=== PATIENT | female | born 1985 | race Caucasian/White ===

== ENCOUNTER 2023-09-03 15:53 | Inpatient (IN) | payer OTHER ==
[2023-09-03] MEDS: LACTATED RINGERS SOLUTION 1000 ML INFUS.BAG IV ONE ×2 (17:09→19:55)
[2023-09-03 17:17] LABS: VENOUS BASE EXCESS 10.9 mmol/L (-2-2); VENOUS O2 SATURATION 47.3 % (70-80); VENOUS PCO2 69.7 mmHg (38-52); VENOUS PH 7.366 (7.310-7.410)
[2023-09-03 17:18] LABS: BASO % 0.1 % (0-2.0); EOS % 6.3 % (0-4.5); HEMATOCRIT 35.2 % (32.4-45.2); LYMPH % 40.1 % (8-40); MCH 32.8 pg (25.7-33.7); MCHC 34.2 g/dl (32.0-36.0); MEAN CELL VOLUME 96.1 fl (80-96); MEAN PLT VOLUME 8.6 fl (7.5-11.1); NEUT % 46.5 % (42.8-82.8); PLATELET COUNT 234 10^3/uL (134-434); RBC 3.67 M/mm3 (3.60-5.2); RDW 14.1 % (11.6-15.6); WHITE BLOOD COUNT 4.6 K/mm3 (4.0-10.0)
[2023-09-03] MEDS: PIPERACILLIN/TAZOB 4.5 GM 4.5 GM in DEXTROSE 5%-WATER 100 ML IVPB ONE (17:27)
[2023-09-03] MEDS: VANCOMYCIN 1,000 MG in DEXTROSE 5%-WATER - 250 ML IVPB ONE (17:28)
[2023-09-03] MEDS ORDERED: VANCOMYCIN 1 GRAM (PRE-DOCKED) 1,000 MG/250 ML BAG IVPB ONE (17:28)
[2023-09-03 17:32] LABS: INR 0.78 (0.83-1.09); PROTHROMBIN TIME (PATIENT) 8.9 SEC (9.7-13.0)
[2023-09-03 17:35] LABS: ACTIVATED PTT 41.6 SECONDS (25.2-36.5)
[2023-09-03] MEDS ORDERED: PIPERACILLIN/TAZOB 4.5 GM 4.5 GM/100 ML BAG IVPB ONE (17:56)
[2023-09-03 18:10] LABS: URINE APPEARANCE CLEAR; URINE BILIRUBIN NEGATIVE (NEGATIVE); URINE COLOR YELLOW; URINE GLUCOSE (UA) NEGATIVE (NEGATIVE); URINE KETONE NEGATIVE (NEGATIVE); URINE LEUK ESTERASE NEGATIVE (NEGATIVE); URINE NITRITE NEGATIVE (NEGATIVE); URINE PROTEIN NEGATIVE (NEGATIVE); URINE UROBILINOGEN 0.2 mg/dL (0.2-1.0)
[2023-09-03] MEDS: SODIUM CHLORIDE 0.9% 500 ML INFUS.BAG IV ONE ×2 (18:27→19:52)
[2023-09-03] MEDS: ACETAMINOPHEN 1000 MG/100 ML BAG IVPB ONE (18:28)
[2023-09-03] MEDS ORDERED: ACETAMINOPHEN INJECTION 100 ML IVPB ONE (18:28)
[2023-09-03] MEDS ORDERED: HYDROCORTISONE SOD SUCCINATE 100 MG/2 ML VIAL ONE (19:27)
[2023-09-03 19:33] LABS: POTASSIUM 4.2 mmol/L (3.5-5.1)
[2023-09-03 19:35] LABS: CALCIUM 10.3 mg/dL (8.5-10.1)
[2023-09-03 19:36] LABS: ALBUMIN 3.4 g/dl (3.4-5.0); BLOOD UREA NITROGEN 16.4 mg/dL (7-18)
[2023-09-03 19:39] LABS: CREATININE 0.6 mg/dL (0.55-1.3)
[2023-09-03 19:40] LABS: TOT PROT 7.1 g/dl (6.4-8.2)
[2023-09-03] MEDS ORDERED: MIDODRINE HCL 5 MG TABLET ONE (19:40)
[2023-09-03 19:41] LABS: BILIRUBIN,TOTAL 0.2 mg/dL (0.2-1)
[2023-09-03] MEDS: HYDROCORTISONE SOD SUCCINATE 100 MG/2 ML VIAL IVPUSH ONE (19:52)
[2023-09-03] MEDS: MIDODRINE HCL 5 MG TABLET PEG ONE (20:05)
[2023-09-04 07:11] LABS: HEMATOCRIT 36.5 % (32.4-45.2); HEMOGLOBIN 12.3 GM/dL (10.7-15.3); MCH 32.4 pg (25.7-33.7); MCHC 33.6 g/dl (32.0-36.0); MEAN CELL VOLUME 96.6 fl (80-96); MEAN PLT VOLUME 9.3 fl (7.5-11.1); PLATELET COUNT 296 10^3/uL (134-434); POTASSIUM 4.2 mmol/L (3.5-5.1); RBC 3.78 M/mm3 (3.60-5.2); RDW 14.6 % (11.6-15.6)
[2023-09-04 07:17] LABS: CALCIUM 9.6 mg/dL (8.5-10.1)
[2023-09-04 07:18] LABS: ALBUMIN 3.4 g/dl (3.4-5.0); BLOOD UREA NITROGEN 12.4 mg/dL (7-18); MAGNESIUM 1.8 mg/dL (1.8-2.4)
[2023-09-04 07:19] LABS: PHOSPHOROUS 3.5 mg/dL (2.5-4.9)
[2023-09-04 07:20] LABS: BILIRUBIN,TOTAL 0.2 mg/dL (0.2-1); TOT PROT 7.3 g/dl (6.4-8.2)
[2023-09-04 07:21] LABS: CREATININE 0.5 mg/dL (0.55-1.3)
[2023-09-04 07:27] LABS: WHITE BLOOD COUNT 7.2 K/mm3 (4.0-10.0)
[2023-09-04] MEDS: ENOXAPARIN NA (PORCINE) 40 MG/0.4 ML DISP.SYRIN SQ SCH (09:43)
[2023-09-04] MEDS: MIDODRINE HCL 5 MG TABLET PO SCH (09:44)
[2023-09-04] MEDS: POLYETHYLENE GLYCOL (HEALTHYLAX) 3350 17 GM PACKET PEG SCH (09:44)
[2023-09-04] MEDS: MUPIROCIN 2% TOPICAL OINTMENT FOR DECOLONIZATION NS SCH (09:45)
[2023-09-04 09:52] LABS: ANISOCYTOSIS 0; MACROCYTOSIS 0
[2023-09-04] MEDS: FAMOTIDINE 20 MG/2.5 ML ORAL LIQUID PEG SCH (10:59)
[2023-09-04] MEDS: Lacosamide 50 MG/5 ML ORAL SOLUTION UNIT CUPS PEG SCH ×2 (11:13→21:51)
[2023-09-04] MEDS: LACOSAMIDE 50 MG TABLET PO ONE (11:15)
[2023-09-04] MEDS: AMINO ACIDS/PROTEIN HYDROLYS 30 ML LIQUID.PKT PEG SCH (17:41)
[2023-09-04] MEDS ORDERED: MIDODRINE HCL 5 MG TABLET PEG ONE (19:26)
[2023-09-04] MEDS: CHLORHEXIDINE GLUCONATE 4% CLEANSER FOR DECOLONIZATION TP SCH (21:51)
[2023-09-04] MEDS: lamoTRIgine 100 MG TABLET PO SCH (21:51)
[2023-09-04] MEDS: SENNOSIDES 8.8 MG/5 ML SYRUP PEG SCH (21:51)
[2023-09-07] MEDS: ACETAMINOPHEN 650 MG/20.3 ML ORAL SOLUTION (CUPS) PO PRN (02:58)
[2023-09-07] MEDS: LACTATED RINGERS SOLUTION 1,000 ML/1,000 ML INFUS.BAG IV STA (06:59)
[2023-09-07 09:18] LABS: HEMATOCRIT 33.5 % (32.4-45.2); HEMOGLOBIN 11.5 GM/dL (10.7-15.3); MCH 32.6 pg (25.7-33.7); MCHC 34.4 g/dl (32.0-36.0); MEAN CELL VOLUME 94.7 fl (80-96); MEAN PLT VOLUME 8.9 fl (7.5-11.1); PLATELET COUNT 266 10^3/uL (134-434); RBC 3.54 M/mm3 (3.60-5.2); RDW 14.3 % (11.6-15.6); WHITE BLOOD COUNT 6.3 K/mm3 (4.0-10.0)
[2023-09-07 09:28] LABS: POTASSIUM 4.3 mmol/L (3.5-5.1)
[2023-09-07 09:39] LABS: BLOOD UREA NITROGEN 27.3 mg/dL (7-18); CALCIUM 9.7 mg/dL (8.5-10.1)
[2023-09-07 09:40] LABS: ALBUMIN 3.1 g/dl (3.4-5.0)
[2023-09-07 09:42] LABS: CREATININE 0.7 mg/dL (0.55-1.3); PHOSPHOROUS 3.8 mg/dL (2.5-4.9)
[2023-09-07 09:44] LABS: BILIRUBIN,TOTAL 0.4 mg/dL (0.2-1); TOT PROT 6.6 g/dl (6.4-8.2)
[2023-09-07] MEDS ORDERED: lamoTRIgine 100 MG TABLET PO SCH (11:36)
[2023-09-07] MEDS ORDERED: DIAZEPAM PR PRN (12:09)
[2023-09-07] MEDS: lamoTRIgine 25 MG TABLET GT SCH (12:23)
[2023-09-07] MEDS ORDERED: BRIVARACETAM 100 MG PO SCH (12:27)
[2023-09-07] MEDS ORDERED: BRIVARACETAM 150 MG PO SCH (12:57)
[2023-09-07] MEDS: lamoTRIgine 25 MG TABLET PEG ONE (13:59)
[2023-09-07] MEDS: PATIENT'S OWN MEDICATION (NON-FORMULARY) (Brivaracetam [Briviact] 100 MG Tablet) PO SCH (14:25)
[2023-09-07] MEDS: lamoTRIgine 25 MG TABLET PO ONE (14:25)
[2023-09-07] MEDS: LACOSAMIDE 10 MG/ML PO SCH (14:26)
[2023-09-07] MEDS: BRIVARACETAM 50 MG GT SCH (14:26)
[2023-09-07] MEDS: LAMOTRIGINE 200 MG, LAMOTRIGINE 50 MG PEG SCH (21:17)
[2023-09-07] MEDS: CLOBAZAM 20 MG SL SCH (21:37)
[2023-09-07] MEDS ORDERED: PATIENT'S OWN MEDICATION (NON-FORMULARY) (Brivaracetam [Briviact] 100 MG Tablet) PO SCH (22:00)
[2023-09-07] MEDS ORDERED: BRIVARACETAM 50 MG GT SCH (22:00)
[2023-09-07] MEDS ORDERED: levETIRAcetam 500 MG TABLET (FP) PO SCH ×2 (22:00)
[2023-09-08 07:01] LABS: HEMATOCRIT 34.9 % (32.4-45.2); HEMOGLOBIN 11.8 GM/dL (10.7-15.3); MCH 32.3 pg (25.7-33.7); MCHC 33.7 g/dl (32.0-36.0); MEAN CELL VOLUME 95.7 fl (80-96); MEAN PLT VOLUME 8.3 fl (7.5-11.1); PLATELET COUNT 248 10^3/uL (134-434); RBC 3.64 M/mm3 (3.60-5.2); RDW 14.2 % (11.6-15.6); WHITE BLOOD COUNT 6.8 K/mm3 (4.0-10.0)
[2023-09-08 07:23] LABS: ALBUMIN 3.4 g/dl (3.4-5.0); BLOOD UREA NITROGEN 26.6 mg/dL (7-18); CALCIUM 9.4 mg/dL (8.5-10.1); MAGNESIUM 2.1 mg/dL (1.8-2.4)
[2023-09-08 07:26] LABS: CREATININE 0.6 mg/dL (0.55-1.3); PHOSPHOROUS 3.9 mg/dL (2.5-4.9)
[2023-09-08 07:27] LABS: BILIRUBIN,TOTAL 0.3 mg/dL (0.2-1); TOT PROT 7.1 g/dl (6.4-8.2)
[2023-09-08 12:13] VITALS: BP 93/61; PULSE 77; RESP 25; TEMP 97.2
[2023-09-08 13:15] VITALS: BMI 21.6
[2023-09-08] MEDS ORDERED: ACETAMINOPHEN 650 MG/20.3 ML ORAL SOLUTION (CUPS) PO PRN (14:34)
[2023-09-08] MEDS ORDERED: AMINO ACIDS/PROTEIN HYDROLYS 30 ML LIQUID.PKT PEG SCH (17:30)
[2023-09-08] MEDS ORDERED: MIDODRINE HCL 5 MG TABLET PO SCH (18:00)
[2023-09-08] MEDS ORDERED: SENNOSIDES 8.8 MG/5 ML SYRUP PEG SCH (22:00)
[2023-09-08] MEDS ORDERED: Lacosamide 50 MG/5 ML ORAL SOLUTION UNIT CUPS PEG SCH (22:00)
[2023-09-09] MEDS ORDERED: FAMOTIDINE 20 MG/2.5 ML ORAL LIQUID PEG SCH (10:00)
[2023-09-09] MEDS ORDERED: ENOXAPARIN NA (PORCINE) 40 MG/0.4 ML DISP.SYRIN SQ SCH (10:00)
[2023-09-09] MEDS ORDERED: POLYETHYLENE GLYCOL (HEALTHYLAX) 3350 17 GM PACKET PEG SCH (10:00)
== END 2023-09-08 15:18 | DRG 947 ==
LOC: JER 15:53 → JERBED 19:42 → JICU 22:50
PROVIDERS: ADMIT Internal Medicine Pulmonary Disease; ATTEND Internal Medicine
DX: R68.0 Hypothermia, not associated with low environmental temperature (principal); G93.41 Metabolic encephalopathy; R53.2 Functional quadriplegia; F84.2 Rett's syndrome; G90.9 Disorder of the autonomic nervous system, unspecified; G40.909 Epilepsy, unspecified, not intractable, without status epilepticus; I95.89 Other hypotension; R41.82 Altered mental status, unspecified; N20.0 Calculus of kidney
CPT/HCPCS: 0241U-QW; 36415; 71045-TC-FY; 80053; 81003; 82308; 82550; 82803; 82962; 83605; 83735; 84100; 84146; 84439; 84443; 84484; 85025; 85027; 85610; 85730; 86140; 86850; 86870; 86880; 86900; 86901; 86902; 87040; 87086; 87635; 93005; 93010; 99285-25; J0131

== ENCOUNTER 2024-02-08 10:44 | Inpatient (IN) | payer OTHER ==
[2024-02-08 12:34] LABS: ACTIVATED PTT 38.4 SECONDS (25.2-36.5); PROTHROMBIN TIME (PATIENT) 11.5 SEC (9.7-13.0)
[2024-02-08 12:37] LABS: POTASSIUM 3.8 mmol/L (3.5-5.1)
[2024-02-08 12:38] LABS: CALCIUM 10.4 mg/dL (8.5-10.1)
[2024-02-08 12:39] LABS: ALBUMIN 3.4 g/dl (3.4-5.0); BLOOD UREA NITROGEN 12.7 mg/dL (7-18)
[2024-02-08 12:44] LABS: BILIRUBIN,TOTAL 0.2 mg/dL (0.2-1); TOT PROT 7.7 g/dl (6.4-8.2)
[2024-02-08] MEDS ORDERED: VANCOMYCIN 1 GRAM (PRE-DOCKED) 1,000 MG/250 ML BAG IVPB ONE (14:03)
[2024-02-08] MEDS ORDERED: PIPERACILLIN/TAZOB 4.5 GM 4.5 GM/100 ML BAG IVPB ONE (14:03)
[2024-02-08 14:22] LABS: HEMOGLOBIN 13.3 GM/dL (10.7-15.3); MCH 31.9 pg (25.7-33.7); MEAN CELL VOLUME 93.7 fl (80-96); MEAN PLT VOLUME 9.9 fl (7.5-11.1); PLATELET COUNT 169 10^3/uL (134-434); RBC 4.17 M/mm3 (3.60-5.2); RDW 13.4 % (11.6-15.6); WHITE BLOOD COUNT 14.3 K/mm3 (4.0-10.0)
[2024-02-08] MEDS: PIPERACILLIN/TAZOB 4.5 GM 4.5 GM in DEXTROSE 5%-WATER 100 ML IVPB ONE (14:35)
[2024-02-08 14:50] LABS: EPI CELLS 1 /uL (0-25.1); HYALINE CASTS 3 /uL (0-3.1); PH,URINE 6.5 (5.0-8.0); URINE APPEARANCE CLOUDY; URINE BACTERIA >9,000 /uL (0-1359); URINE BILIRUBIN NEGATIVE (NEGATIVE); URINE COLOR YELLOW; URINE GLUCOSE (UA) NEGATIVE (NEGATIVE); URINE KETONE NEGATIVE (NEGATIVE); URINE LEUK ESTERASE 3+ (NEGATIVE); URINE NITRITE POSITIVE (NEGATIVE); URINE PROTEIN 1+ (NEGATIVE); URINE RBC 11 /uL (0-23.9); URINE WBC 340 /uL (0-25.8)
[2024-02-08 14:59] LABS: ANISOCYTOSIS 0; MACROCYTOSIS 0
[2024-02-08 14:59] LABS: LACTIC ACID 6.6 mmol/L (0.4-2.0)
[2024-02-08] MEDS: VANCOMYCIN 1 GRAM (PRE-DOCKED) 1,000 MG/250 ML BAG IVPB ONE (15:04)
[2024-02-08] MEDS: SODIUM CHLORIDE 0.9% 500 ML INFUS.BAG IV ONE (15:27)
[2024-02-08] MEDS ORDERED: ACETAMINOPHEN 325 MG TABLET (FP) PO PRN (15:31)
[2024-02-08] MEDS ORDERED: diazePAM RECTAL GEL 7.5 MG KIT (PRE-CALIBRATED) RC PRN (15:31)
[2024-02-08] MEDS ORDERED: MIDODRINE HCL 5 MG TABLET ONE (18:25)
[2024-02-08] MEDS ORDERED: PIPERACILLIN/TAZOB 3.375 GM 3.375 GM/50 ML BAG IVPB ONE (18:26)
[2024-02-08 18:31] LABS: LACTIC ACID 4.4 mmol/L (0.4-2.0)
[2024-02-08] MEDS: MIDODRINE HCL 5 MG TABLET GT SCH (18:44)
[2024-02-08] MEDS: SCOPOLAMINE HYDROBROMIDE 1 PATCH PATCH.TD72 TD SCH (18:44)
[2024-02-08] MEDS: PIPERACILLIN/TAZOB 3.375 GM 3.375 GM in DEXTROSE 5%-WATER - 50 ML IVPB SCH (18:44)
[2024-02-08 20:10] LABS: LACTIC ACID 3.8 mmol/L (0.4-2.0)
[2024-02-08] MEDS ORDERED: cloBAZam 10 MG TABLET ONE (22:14)
[2024-02-08] MEDS ORDERED: Lacosamide 200 MG/20 ML VIAL IVPB ONE (22:14)
[2024-02-08] MEDS ORDERED: lamoTRIgine 100 MG TABLET ONE (22:15)
[2024-02-08] MEDS ORDERED: lamoTRIgine 25 MG TABLET ONE (22:15)
[2024-02-08] MEDS ORDERED: Lacosamide 50 MG/5 ML ORAL SOLUTION UNIT CUPS ONE (22:25)
[2024-02-08] MEDS: cloBAZam 10 MG TABLET GT SCH (22:52)
[2024-02-08] MEDS: LAMOTRIGINE 200 MG, LAMOTRIGINE 25 MG PO SCH (22:52)
[2024-02-08] MEDS: Lacosamide 50 MG/5 ML ORAL SOLUTION UNIT CUPS PO SCH (22:52)
[2024-02-08] MEDS: ARTIFICIAL TEARS OPHTHALMIC DROPS OU SCH (23:25)
[2024-02-09] MEDS ORDERED: PIPERACILLIN/TAZOB 3.375 GM 3.375 GM/50 ML BAG IVPB ONE ×2 (02:45→12:31)
[2024-02-09 07:25] LABS: BASO % 0.1 % (0-2.0); EOS % 0.2 % (0-4.5); HEMATOCRIT 38.9 % (32.4-45.2); HEMOGLOBIN 13.2 GM/dL (10.7-15.3); LYMPH % 9.1 % (8-40); MCH 31.9 pg (25.7-33.7); MCHC 33.8 g/dl (32.0-36.0); MEAN CELL VOLUME 94.3 fl (80-96); MEAN PLT VOLUME 9.1 fl (7.5-11.1); MONO % 6.7 % (3.8-10.2); NEUT % 83.9 % (42.8-82.8); PLATELET COUNT 239 10^3/uL (134-434); RBC 4.13 M/mm3 (3.60-5.2); RDW 12.9 % (11.6-15.6)
[2024-02-09 07:36] LABS: POTASSIUM 4.5 mmol/L (3.5-5.1)
[2024-02-09 07:41] LABS: ALBUMIN 3.5 g/dl (3.4-5.0); BLOOD UREA NITROGEN 9.7 mg/dL (7-18); CALCIUM 10.5 mg/dL (8.5-10.1); MAGNESIUM 2.2 mg/dL (1.8-2.4)
[2024-02-09 07:45] LABS: CREATININE 0.5 mg/dL (0.55-1.3); PHOSPHOROUS 2.6 mg/dL (2.5-4.9)
[2024-02-09 07:46] LABS: BILIRUBIN,TOTAL 0.4 mg/dL (0.2-1); TOT PROT 7.9 g/dl (6.4-8.2)
[2024-02-09] MEDS ORDERED: POLYETHYLENE GLYCOL (HEALTHYLAX) 3350 17 GM PACKET ONE (12:29)
[2024-02-09] MEDS ORDERED: Lacosamide 200 MG/20 ML VIAL IVPB ONE (12:30)
[2024-02-09] MEDS ORDERED: lamoTRIgine 100 MG TABLET ONE (12:30)
[2024-02-09] MEDS ORDERED: lamoTRIgine 25 MG TABLET ONE (12:30)
[2024-02-09] MEDS: LORATADINE 10 MG TABLET GT SCH (13:12)
[2024-02-09] MEDS: LACTOBACILLUS ACIDOPHILUS 1 TABLET PO SCH (13:12)
[2024-02-09] MEDS: POLYETHYLENE GLYCOL (HEALTHYLAX) 3350 17 GM PACKET GT SCH (13:12)
[2024-02-09] MEDS: ENOXAPARIN NA (PORCINE) 40 MG/0.4 ML DISP.SYRIN SQ SCH (13:12)
[2024-02-09] MEDS: SENNOSIDES 8.8 MG/5 ML SYRUP GT SCH (13:13)
[2024-02-09] MEDS: FAMOTIDINE 20 MG TABLET PO SCH (13:13)
[2024-02-09] MEDS ORDERED: Lacosamide 50 MG/5 ML ORAL SOLUTION UNIT CUPS ONE (13:16)
[2024-02-09] MEDS: DEXTROSE 5%-LACTATED RINGERS 1,000 ML IV SCH (13:44)
[2024-02-09] MEDS: DOCUSATE SODIUM 100 MG CAPSULE (FP) PO SCH (20:27)
[2024-02-09] MEDS: FLUTICASONE PROP 0.05% 16 GM NASAL SPRAY NS SCH (20:27)
[2024-02-09] MEDS: PIPERACILLIN/TAZOB 3.375 GM 3.375 GM in DEXTROSE 5%-WATER - 50 ML IVPB SCH ×2 (20:37→23:59)
[2024-02-10 07:10] LABS: HEMATOCRIT 38.8 % (32.4-45.2); HEMOGLOBIN 13.1 GM/dL (10.7-15.3); MCH 31.9 pg (25.7-33.7); MCHC 33.8 g/dl (32.0-36.0); MEAN CELL VOLUME 94.6 fl (80-96); MEAN PLT VOLUME 9.3 fl (7.5-11.1); PLATELET COUNT 250 10^3/uL (134-434); RBC 4.11 M/mm3 (3.60-5.2); RDW 13.5 % (11.6-15.6); WHITE BLOOD COUNT 6.6 K/mm3 (4.0-10.0)
[2024-02-10 07:35] LABS: ALBUMIN 3.2 g/dl (3.4-5.0); BLOOD UREA NITROGEN 12.3 mg/dL (7-18); CALCIUM 10.1 mg/dL (8.5-10.1)
[2024-02-10 07:39] LABS: CREATININE 0.7 mg/dL (0.55-1.3)
[2024-02-10 07:40] LABS: BILIRUBIN,TOTAL 0.6 mg/dL (0.2-1); TOT PROT 7.3 g/dl (6.4-8.2)
[2024-02-10] MEDS ORDERED: diazePAM RECTAL GEL 7.5 MG KIT (PRE-CALIBRATED) RC PRN (14:13)
[2024-02-10] MEDS ORDERED: ACETAMINOPHEN 325 MG TABLET (FP) PO PRN (14:13)
[2024-02-10] MEDS: VANCOMYCIN/WATER FOR INJ (PEG) 1,000 MG/200 ML BAG IVPB SCH (14:37)
[2024-02-10] MEDS: NORETHINDRONE E ESTRADIOL IRON GT SCH (15:51)
[2024-02-10] MEDS: BRIVARACETAM 50 MG GT SCH (15:51)
[2024-02-10] MEDS: MIDODRINE HCL 5 MG TABLET GT SCH (18:22)
[2024-02-10] MEDS: SCOPOLAMINE HYDROBROMIDE 1 PATCH PATCH.TD72 TD SCH (18:53)
[2024-02-10] MEDS ORDERED: ACETAMINOPHEN 160 MG/5 ML *Children Solution GT PRN (21:05)
[2024-02-10] MEDS: PIPERACILLIN/TAZOB 3.375 GM 50 ML IVPB SCH (21:22)
[2024-02-10] MEDS ORDERED: LAMOTRIGINE 200 MG, LAMOTRIGINE 25 MG PO SCH (22:00)
[2024-02-10] MEDS ORDERED: Lacosamide 50 MG/5 ML ORAL SOLUTION UNIT CUPS PO SCH (22:00)
[2024-02-10] MEDS ORDERED: BRIVARACETAM 50 MG GT SCH (22:00)
[2024-02-10 23:37] VITALS: RESP 18
[2024-02-10] MEDS: cloBAZam 10 MG TABLET GT SCH (23:40)
[2024-02-10] MEDS: Lacosamide 50 MG/5 ML ORAL SOLUTION UNIT CUPS GT SCH (23:40)
[2024-02-10] MEDS: LAMOTRIGINE 200 MG, LAMOTRIGINE 25 MG GT SCH (23:40)
[2024-02-11] MEDS: ARTIFICIAL TEARS OPHTHALMIC DROPS OU SCH (02:33)
[2024-02-11] MEDS ORDERED: LACTOBACILLUS ACIDOPHILUS 1 TABLET PO SCH (10:00)
[2024-02-11] MEDS ORDERED: DOCUSATE SODIUM 100 MG CAPSULE (FP) PO SCH (10:00)
[2024-02-11] MEDS ORDERED: FAMOTIDINE 20 MG TABLET PO SCH (10:00)
[2024-02-11] MEDS ORDERED: NORETHINDRONE E ESTRADIOL IRON GT SCH (10:00)
[2024-02-11] MEDS: ENOXAPARIN NA (PORCINE) 40 MG/0.4 ML DISP.SYRIN SQ SCH (10:17)
[2024-02-11] MEDS: LACTOBACILLUS ACIDOPHILUS 1 TABLET GT SCH (10:20)
[2024-02-11] MEDS: POLYETHYLENE GLYCOL (HEALTHYLAX) 3350 17 GM PACKET GT SCH (10:20)
[2024-02-11] MEDS: DOCUSATE NA 100 MG/10 ML UNIT-DOSE CUPS GT SCH (10:20)
[2024-02-11] MEDS: FAMOTIDINE 20 MG TABLET PEG SCH (10:21)
[2024-02-11] MEDS: LORATADINE 10 MG TABLET GT SCH (10:21)
[2024-02-11] MEDS: FLUTICASONE PROP 0.05% 16 GM NASAL SPRAY NS SCH (10:23)
[2024-02-11] MEDS: SENNOSIDES 8.8 MG/5 ML SYRUP GT SCH (10:46)
[2024-02-11] MEDS: ALBUTEROL SO4 2.5/IPRATROPIUM 0.5 INH SOL 3 ML VIAL.NEB. NEB SCH (12:00)
[2024-02-11 13:31] LABS: HEMATOCRIT 38.6 % (32.4-45.2); HEMOGLOBIN 13.2 GM/dL (10.7-15.3); MCH 32.3 pg (25.7-33.7); MCHC 34.3 g/dl (32.0-36.0); MEAN CELL VOLUME 94.1 fl (80-96); MEAN PLT VOLUME 9.6 fl (7.5-11.1); PLATELET COUNT 261 10^3/uL (134-434); RDW 13.5 % (11.6-15.6); WHITE BLOOD COUNT 5.9 K/mm3 (4.0-10.0)
[2024-02-11 13:57] LABS: POTASSIUM 4.5 mmol/L (3.5-5.1)
[2024-02-11 14:02] LABS: ALBUMIN 3.1 g/dl (3.4-5.0); CALCIUM 9.4 mg/dL (8.5-10.1)
[2024-02-11 14:03] LABS: BLOOD UREA NITROGEN 14.2 mg/dL (7-18)
[2024-02-11 14:06] LABS: CREATININE 0.6 mg/dL (0.55-1.3)
[2024-02-11 14:07] LABS: BILIRUBIN,TOTAL 0.6 mg/dL (0.2-1); TOT PROT 7.3 g/dl (6.4-8.2)
[2024-02-11] MEDS ORDERED: SCOPOLAMINE HYDROBROMIDE 1 PATCH PATCH.TD72 TD SCH (15:45)
[2024-02-12 11:16] LABS: POTASSIUM 4.3 mmol/L (3.5-5.1)
[2024-02-12 11:18] LABS: CALCIUM 9.6 mg/dL (8.5-10.1)
[2024-02-12 11:19] LABS: ALBUMIN 3.3 g/dl (3.4-5.0)
[2024-02-12 11:22] LABS: CREATININE 0.6 mg/dL (0.55-1.3)
[2024-02-12 11:23] LABS: BILIRUBIN,TOTAL 0.3 mg/dL (0.2-1); TOT PROT 7.6 g/dl (6.4-8.2)
[2024-02-12 11:32] LABS: HEMATOCRIT 37.9 % (32.4-45.2); HEMOGLOBIN 13.1 GM/dL (10.7-15.3); MCH 32.4 pg (25.7-33.7); MCHC 34.6 g/dl (32.0-36.0); MEAN CELL VOLUME 93.6 fl (80-96); RBC 4.05 M/mm3 (3.60-5.2); RDW 13.8 % (11.6-15.6); WHITE BLOOD COUNT 5.8 K/mm3 (4.0-10.0)
[2024-02-12 13:46] VITALS: BP 111/88; PULSE 87; TEMP 98.6
[2024-02-12 23:36] VITALS: BMI 20.9
== END 2024-02-12 14:55 | DRG 871 ==
LOC: JER 10:44 → JERBED 15:04 → J4W 02-09 18:00 → J6S 02-10 13:23
PROVIDERS: ADMIT Internal Medicine; ATTEND Internal Medicine
DX: A41.9 Sepsis, unspecified organism (principal); J69.0 Pneumonitis due to inhalation of food and vomit; F73 Profound intellectual disabilities; F84.2 Rett's syndrome; N39.0 Urinary tract infection, site not specified; E87.20 Acidosis, unspecified; Z15.1 Genetic susceptibility to epilepsy and neurodevelopmental disorders; G40.909 Epilepsy, unspecified, not intractable, without status epilepticus; Z93.1 Gastrostomy status; I95.9 Hypotension, unspecified; R65.20 Severe sepsis without septic shock; B96.20 Unspecified Escherichia coli [E. coli] as the cause of diseases classified elsewhere; K59.00 Constipation, unspecified
CPT/HCPCS: 0241U-QW; 36415; 71045-TC-FY; 80053; 81003; 83605; 83735; 84100; 84484; 85025; 85027; 85610; 85730; 86850; 86870; 86880; 86900; 86901; 86902; 87040; 87086; 87186; 87635; 93005; 93010; 94640; 99285-25

== ENCOUNTER 2024-03-06 20:59 | Inpatient (IN) | payer OTHER ==
[2024-03-06] MEDS ORDERED: MIDAZOLAM HCL 5 MG/1 ML Single Dose Vial ONE (23:37)
[2024-03-06] MEDS: MIDAZOLAM HCL 2 MG/2 ML SINGLE DOSE VIAL IM ONE (23:49)
[2024-03-07 00:39] LABS: BASO % 0.5 % (0-2.0); EOS % 3.3 % (0-4.5); HEMATOCRIT 36.4 % (32.4-45.2); HEMOGLOBIN 12.6 GM/dL (10.7-15.3); LYMPH % 18.6 % (8-40); MCH 32.8 pg (25.7-33.7); MCHC 34.7 g/dl (32.0-36.0); MEAN CELL VOLUME 94.6 fl (80-96); MEAN PLT VOLUME 8.7 fl (7.5-11.1); MONO % 5.4 % (3.8-10.2); NEUT % 72.2 % (42.8-82.8); PLATELET COUNT 368 10^3/uL (134-434); RBC 3.84 M/mm3 (3.60-5.2); RDW 13.4 % (11.6-15.6); WHITE BLOOD COUNT 10.1 K/mm3 (4.0-10.0)
[2024-03-07 00:47] LABS: EPI CELLS 4 /uL (0-25.1); HYALINE CASTS 0 /uL (0-3.1); URINE APPEARANCE CLEAR; URINE BACTERIA >9,000 /uL (0-1359); URINE BILIRUBIN NEGATIVE (NEGATIVE); URINE COLOR YELLOW; URINE GLUCOSE (UA) NEGATIVE (NEGATIVE); URINE KETONE NEGATIVE (NEGATIVE); URINE LEUK ESTERASE 1+ (NEGATIVE); URINE NITRITE POSITIVE (NEGATIVE); URINE PROTEIN NEGATIVE (NEGATIVE); URINE RBC 2 /uL (0-23.9); URINE UROBILINOGEN 0.2 mg/dL (0.2-1.0); URINE WBC 30 /uL (0-25.8)
[2024-03-07 00:57] LABS: POTASSIUM 4.6 mmol/L (3.5-5.1)
[2024-03-07 00:58] LABS: CALCIUM 10.2 mg/dL (8.5-10.1)
[2024-03-07 01:00] LABS: ALBUMIN 3.7 g/dl (3.4-5.0); BLOOD UREA NITROGEN 12.7 mg/dL (7-18)
[2024-03-07 01:03] LABS: CREATININE 0.7 mg/dL (0.55-1.3)
[2024-03-07 01:05] LABS: BILIRUBIN,TOTAL 0.2 mg/dL (0.2-1); TOT PROT 7.6 g/dl (6.4-8.2)
[2024-03-07] MEDS ORDERED: CEFTRIAXONE 1 GM/50 ML BAG ONE (01:21)
[2024-03-07] MEDS: CEFTRIAXONE 1,000 MG in DEXTROSE 5%-WATER - 50 ML IVPB ONE (01:29)
[2024-03-07] MEDS ORDERED: SCOPOLAMINE HYDROBROMIDE 1 PATCH PATCH.TD72 ONE (03:38)
[2024-03-07] MEDS: SCOPOLAMINE HYDROBROMIDE 1 PATCH PATCH.TD72 TD SCH (04:00)
[2024-03-07] MEDS ORDERED: MIDODRINE HCL 5 MG TABLET GT SCH (06:00)
[2024-03-07 08:32] LABS: HEMATOCRIT 36.5 % (32.4-45.2); HEMOGLOBIN 12.8 GM/dL (10.7-15.3); MCH 32.8 pg (25.7-33.7); MEAN CELL VOLUME 93.6 fl (80-96); MEAN PLT VOLUME 8.9 fl (7.5-11.1); PLATELET COUNT 359 10^3/uL (134-434); RDW 13.4 % (11.6-15.6); WHITE BLOOD COUNT 8.7 K/mm3 (4.0-10.0)
[2024-03-07 11:05] LABS: POTASSIUM 4.4 mmol/L (3.5-5.1)
[2024-03-07 11:09] LABS: ALBUMIN 3.8 g/dl (3.4-5.0); BLOOD UREA NITROGEN 11.9 mg/dL (7-18); MAGNESIUM 2.2 mg/dL (1.8-2.4)
[2024-03-07] MEDS: SENNOSIDES 8.8 MG/5 ML SYRUP GT SCH (11:09)
[2024-03-07 11:13] LABS: CREATININE 0.6 mg/dL (0.55-1.3); PHOSPHOROUS 3.2 mg/dL (2.5-4.9); TOT PROT 7.9 g/dl (6.4-8.2)
[2024-03-07 11:14] LABS: BILIRUBIN,TOTAL 0.2 mg/dL (0.2-1)
[2024-03-07] MEDS: lamoTRIgine 100 MG TABLET PEG SCH (12:00)
[2024-03-07] MEDS ORDERED: PIPERACILLIN/TAZOB 3.375 GM 3.375 GM/50 ML BAG IVPB ONE (12:03)
[2024-03-07] MEDS: PIPERACILLIN/TAZOB 3.375 GM 3.375 GM in DEXTROSE 5%-WATER - 50 ML IVPB SCH (12:12)
[2024-03-07] MEDS ORDERED: ENOXAPARIN NA (PORCINE) 40 MG/0.4 ML DISP.SYRIN SQ ONE (12:49)
[2024-03-07] MEDS ORDERED: MIDODRINE HCL 5 MG TABLET ONE (12:50)
[2024-03-07] MEDS ORDERED: POLYETHYLENE GLYCOL (HEALTHYLAX) 3350 17 GM PACKET ONE (12:51)
[2024-03-07] MEDS ORDERED: FAMOTIDINE 20 MG TABLET ONE (12:51)
[2024-03-07] MEDS: ENOXAPARIN NA (PORCINE) 40 MG/0.4 ML DISP.SYRIN SQ SCH (12:53)
[2024-03-07] MEDS: MIDODRINE HCL 5 MG TABLET GT SCH (12:54)
[2024-03-07] MEDS: POLYETHYLENE GLYCOL (HEALTHYLAX) 3350 17 GM PACKET GT SCH (12:54)
[2024-03-08] MEDS: PIPERACILLIN/TAZOB 3.375 GM 50 ML IVPB SCH (00:19)
[2024-03-08] MEDS: FAMOTIDINE 20 MG TABLET PO SCH (08:42)
[2024-03-08] MEDS: MIDODRINE HCL 5 MG TABLET GT SCH (08:42)
[2024-03-08] MEDS: PIPERACILLIN/TAZOB 3.375 GM 3.375 GM in DEXTROSE 5%-WATER - 50 ML IVPB SCH (11:02)
[2024-03-08] MEDS: Lacosamide 50 MG/5 ML ORAL SOLUTION UNIT CUPS PO SCH (11:11)
[2024-03-08] MEDS: FAMOTIDINE 20 MG/2.5 ML ORAL LIQUID PEG SCH (11:17)
[2024-03-08] MEDS: diphenhydrAMINE HCL 25 MG CAPSULE (FP) PO ONE (12:00)
[2024-03-08] MEDS: CEFTRIAXONE 1 G/50 ML PREMIX 50 ML IVPB SCH (14:35)
[2024-03-09 11:24] VITALS: BMI 24.2
[2024-03-09] MEDS ORDERED: diazePAM RECTAL GEL 7.5 MG KIT (PRE-CALIBRATED) RC PRN (15:13)
[2024-03-09] MEDS ORDERED: DIPHENHYDRAMINE HCL 25 MG/10 ML CUP GT PRN (15:16)
[2024-03-09] MEDS ORDERED: diphenhydrAMINE HCL 12.5 MG/5 ML UNIT-DOSE CUPS GT PRN (16:43)
[2024-03-09] MEDS: ARTIFICIAL TEARS OPHTHALMIC DROPS OU SCH (21:26)
[2024-03-09] MEDS: cloBAZam 10 MG TABLET GT SCH (21:27)
[2024-03-09] MEDS ORDERED: [UNRECOGNIZED DRUG - OTHER] PO SCH (22:00)
[2024-03-10 08:48] LABS: BASO % 0.1 % (0-2.0); EOS % 7.1 % (0-4.5); HEMATOCRIT 41.7 % (32.4-45.2); HEMOGLOBIN 13.8 GM/dL (10.7-15.3); LYMPH % 40.3 % (8-40); MEAN CELL VOLUME 96.9 fl (80-96); MEAN PLT VOLUME 8.7 fl (7.5-11.1); MONO % 11.5 % (3.8-10.2); PLATELET COUNT 293 10^3/uL (134-434); RDW 14.3 % (11.6-15.6); WHITE BLOOD COUNT 4.3 K/mm3 (4.0-10.0)
[2024-03-10] MEDS: LACTOBACILLUS ACIDOPHILUS 1 TABLET GT SCH (10:01)
[2024-03-10] MEDS: FLUTICASONE PROP 0.05% 16 GM NASAL SPRAY NS SCH (10:03)
[2024-03-10] MEDS: DOCUSATE NA 100 MG/10 ML UNIT-DOSE CUPS GT SCH (10:03)
[2024-03-11 09:02] VITALS: TEMP 98.4
[2024-03-11 10:44] LABS: HEMATOCRIT 37.4 % (32.4-45.2); HEMOGLOBIN 12.5 GM/dL (10.7-15.3); MCH 32.1 pg (25.7-33.7); MCHC 33.3 g/dl (32.0-36.0); MEAN CELL VOLUME 96.4 fl (80-96); MEAN PLT VOLUME 9.2 fl (7.5-11.1); PLATELET COUNT 294 10^3/uL (134-434); RBC 3.88 M/mm3 (3.60-5.2); RDW 13.9 % (11.6-15.6); WHITE BLOOD COUNT 4.8 K/mm3 (4.0-10.0)
[2024-03-11] MEDS: NORETHINDRONE E ESTRADIOL IRON GT SCH ×2 (10:55→14:45)
[2024-03-11 13:45] VITALS: BP 118/77; PULSE 82; RESP 18
== END 2024-03-11 16:40 | DRG 689 ==
LOC: JER 20:59 → JERBED 03-07 02:15 → J7W 03-07 20:48
PROVIDERS: ADMIT Internal Medicine
DX: N39.0 Urinary tract infection, site not specified (principal); R53.2 Functional quadriplegia; F84.2 Rett's syndrome; E87.0 Hyperosmolality and hypernatremia; G93.49 Other encephalopathy; F72 Severe intellectual disabilities; Z15.1 Genetic susceptibility to epilepsy and neurodevelopmental disorders; I95.9 Hypotension, unspecified; R56.9 Unspecified convulsions; Z93.1 Gastrostomy status; L50.9 Urticaria, unspecified; L27.0 Generalized skin eruption due to drugs and medicaments taken internally
CPT/HCPCS: 36415; 71045-TC-FY; 80053; 80175; 80177; 81003; 83735; 84100; 84443; 84703; 85025; 85027; 87086; 87186; 87481; 87635; 93005; 93010; 95816; 99285-25; G0480

== ENCOUNTER 2024-04-21 12:24 | Inpatient (IN) | payer OTHER ==
[2024-04-21 14:39] LABS: BASO % 0.1 % (0-2.0); EOS % 2.3 % (0-4.5); HEMATOCRIT 41.3 % (32.4-45.2); HEMOGLOBIN 13.9 GM/dL (10.7-15.3); LYMPH % 27.5 % (8-40); MCH 31.8 pg (25.7-33.7); MCHC 33.6 g/dl (32.0-36.0); MEAN CELL VOLUME 94.7 fl (80-96); MEAN PLT VOLUME 8.7 fl (7.5-11.1); MONO % 6.2 % (3.8-10.2); NEUT % 63.9 % (42.8-82.8); PLATELET COUNT 297 10^3/uL (134-434); RBC 4.37 M/mm3 (3.60-5.2); RDW 13.2 % (11.6-15.6); WHITE BLOOD COUNT 5.3 K/mm3 (4.0-10.0)
[2024-04-21] MEDS: SODIUM CHLORIDE 0.9% 1000 ML INFUS.BAG IV STA (14:40)
[2024-04-21 14:47] LABS: INR 0.96 (0.83-1.09); PROTHROMBIN TIME (PATIENT) 10.9 SEC (9.7-13.0)
[2024-04-21 14:49] LABS: ACTIVATED PTT 37.3 SECONDS (25.2-36.5)
[2024-04-21 14:54] LABS: POTASSIUM 4.3 mmol/L (3.5-5.1)
[2024-04-21 14:56] LABS: ALBUMIN 3.7 g/dl (3.4-5.0); BLOOD UREA NITROGEN 12.4 mg/dL (7-18); CALCIUM 10.6 mg/dL (8.5-10.1)
[2024-04-21 14:59] LABS: CREATININE 0.7 mg/dL (0.55-1.3)
[2024-04-21 15:01] LABS: BILIRUBIN,TOTAL 0.3 mg/dL (0.2-1); TOT PROT 7.9 g/dl (6.4-8.2)
[2024-04-21] MEDS ORDERED: PIPERACILLIN/TAZOB 4.5 GM 4.5 GM/100 ML BAG IVPB ONE (15:30)
[2024-04-21 15:35] LABS: VENOUS BASE EXCESS 5.9 mmol/L (-2-2); VENOUS O2 SATURATION 32.6 % (70-80); VENOUS PCO2 68.2 mmHg (38-52); VENOUS PH 7.335 (7.310-7.410)
[2024-04-21] MEDS: PIPERACILLIN/TAZOB 4.5 GM 4.5 GM in DEXTROSE 5%-WATER 100 ML IVPB ONE (15:35)
[2024-04-21 15:36] LABS: URINE APPEARANCE CLEAR; URINE BILIRUBIN NEGATIVE (NEGATIVE); URINE COLOR YELLOW; URINE GLUCOSE (UA) NEGATIVE (NEGATIVE); URINE KETONE NEGATIVE (NEGATIVE); URINE LEUK ESTERASE 2+ (NEGATIVE); URINE NITRITE NEGATIVE (NEGATIVE); URINE PROTEIN NEGATIVE (NEGATIVE); URINE UROBILINOGEN 0.2 mg/dL (0.2-1.0)
[2024-04-21 15:56] LABS: EPI CELLS 4 /uL (0-25.1); HYALINE CASTS 0 /uL (0-3.1); URINE BACTERIA 10404 /uL (0-1359); URINE RBC 3 /uL (0-23.9); URINE WBC 8 /uL (0-25.8)
[2024-04-21] MEDS: VANCOMYCIN 1,000 MG in DEXTROSE 5%-WATER - 250 ML IVPB ONE (15:56)
[2024-04-21] MEDS ORDERED: VANCOMYCIN 1 GM PREMIX (F) 1 GM/200 ML BAG ONE (16:09)
[2024-04-21] MEDS: VANCOMYCIN 1 GM PREMIX (F) 1 GM/200 ML BAG IVPB ONE (16:15)
[2024-04-21] MEDS ORDERED: ACETAMINOPHEN 650 MG/20.3 ML ORAL SOLUTION (CUPS) GT PRN (19:07)
[2024-04-21] MEDS ORDERED: SIMETHICONE 40 MG/0.6 ML BOTTLE GT PRN (19:07)
[2024-04-21] MEDS ORDERED: DIPHENHYDRAMINE HCL 25 MG/10 ML CUP GT PRN (19:07)
[2024-04-21] MEDS ORDERED: ONDANSETRON HCL 4 MG/5 ML UD CUPS GT PRN (19:07)
[2024-04-21] MEDS ORDERED: ALBUTEROL SO4 2.5/IPRATROPIUM 0.5 INH SOL 3 ML VIAL.NEB. NEB PRN (19:07)
[2024-04-21] MEDS ORDERED: BISACODYL 10 MG SUPP.RECT RC PRN (19:07)
[2024-04-21] MEDS ORDERED: [UNRECOGNIZED DRUG - OTHER] GT SCH (22:00)
[2024-04-21] MEDS ORDERED: WATER GT SCH (22:00)
[2024-04-21] MEDS: Lacosamide 50 MG/5 ML ORAL SOLUTION UNIT CUPS GT SCH (22:47)
[2024-04-21] MEDS: BACITRACIN ZINC 15 GM TUBE TOPICAL OINTMENT TP SCH (22:47)
[2024-04-21] MEDS: ARTIFICIAL TEARS OPHTHALMIC DROPS OU SCH (22:47)
[2024-04-21] MEDS: LAMOTRIGINE 200 MG, LAMOTRIGINE 50 MG GT SCH (22:48)
[2024-04-21] MEDS: cloBAZam 10 MG TABLET GT SCH (22:48)
[2024-04-21] MEDS: ZINC OXIDE 20% TOPICAL OINTMENT 30 GM TUBE TP SCH (22:49)
[2024-04-21] MEDS: SCOPOLAMINE HYDROBROMIDE 1 PATCH PATCH.TD72 TD SCH (23:46)
[2024-04-22] MEDS ORDERED: Lacosamide 200 MG/20 ML VIAL IVPB SCH (00:45)
[2024-04-22] MEDS: Lacosamide 200 MG/20 ML VIAL IVPB SCH (01:11)
[2024-04-22] MEDS: CITRIC ACID/SODIUM CITRATE 30 ML UNIT-DOSE CUP NR SCH (05:29)
[2024-04-22 09:31] LABS: BASO % 0.1 % (0-2.0); HEMATOCRIT 40.4 % (32.4-45.2); HEMOGLOBIN 13.8 GM/dL (10.7-15.3); LYMPH % 24.2 % (8-40); MCH 32.2 pg (25.7-33.7); MEAN CELL VOLUME 94.6 fl (80-96); MEAN PLT VOLUME 8.6 fl (7.5-11.1); MONO % 6.7 % (3.8-10.2); PLATELET COUNT 259 10^3/uL (134-434); RBC 4.27 M/mm3 (3.60-5.2); RDW 13.3 % (11.6-15.6); WHITE BLOOD COUNT 4.2 K/mm3 (4.0-10.0)
[2024-04-22 09:42] LABS: POTASSIUM 4.6 mmol/L (3.5-5.1)
[2024-04-22 09:50] LABS: CALCIUM 10.4 mg/dL (8.5-10.1)
[2024-04-22 09:51] LABS: ALBUMIN 3.6 g/dl (3.4-5.0); BLOOD UREA NITROGEN 9.2 mg/dL (7-18); MAGNESIUM 2.1 mg/dL (1.8-2.4)
[2024-04-22 09:54] LABS: CREATININE 0.7 mg/dL (0.55-1.3); PHOSPHOROUS 3.4 mg/dL (2.5-4.9)
[2024-04-22 09:56] LABS: BILIRUBIN,TOTAL 0.3 mg/dL (0.2-1); TOT PROT 7.8 g/dl (6.4-8.2)
[2024-04-22] MEDS: LACTOBACILLUS ACIDOPHILUS 1 TABLET GT SCH (10:06)
[2024-04-22] MEDS: LORATADINE 10 MG TABLET GT SCH (10:08)
[2024-04-22] MEDS: FAMOTIDINE 20 MG/2.5 ML ORAL LIQUID GT SCH (10:11)
[2024-04-22] MEDS: MIDODRINE HCL 5 MG TABLET GT SCH (10:12)
[2024-04-22] MEDS: FLUTICASONE PROP 0.05% 16 GM NASAL SPRAY NS SCH (10:14)
[2024-04-22] MEDS: ENOXAPARIN NA (PORCINE) 40 MG/0.4 ML DISP.SYRIN SQ SCH (11:09)
[2024-04-23] MEDS: BRIVARACETAM 50 MG GT SCH (01:03)
[2024-04-23] MEDS: PATIENT'S OWN MEDICATION (NON-FORMULARY) (Brivaracetam 100 MG Tablet) GT SCH (01:04)
[2024-04-23 09:26] LABS: HEMATOCRIT 45.8 % (32.4-45.2); HEMOGLOBIN 15.2 GM/dL (10.7-15.3); MCH 31.7 pg (25.7-33.7); MCHC 33.1 g/dl (32.0-36.0); MEAN CELL VOLUME 95.8 fl (80-96); MEAN PLT VOLUME 9.2 fl (7.5-11.1); PLATELET COUNT 357 10^3/uL (134-434); RBC 4.78 M/mm3 (3.60-5.2); RDW 13.5 % (11.6-15.6); WHITE BLOOD COUNT 6.4 K/mm3 (4.0-10.0)
[2024-04-23 10:02] LABS: POTASSIUM 4.2 mmol/L (3.5-5.1)
[2024-04-23 10:51] LABS: ALBUMIN 4.1 g/dl (3.4-5.0); BLOOD UREA NITROGEN 14.4 mg/dL (7-18); CALCIUM 11.2 mg/dL (8.5-10.1)
[2024-04-23 10:54] LABS: CREATININE 0.8 mg/dL (0.55-1.3)
[2024-04-23 10:55] LABS: TOT PROT 8.8 g/dl (6.4-8.2)
[2024-04-23 10:56] LABS: BILIRUBIN,TOTAL 0.4 mg/dL (0.2-1)
[2024-04-23 12:07] VITALS: BMI 232.3
[2024-04-23] MEDS: SODIUM CHLORIDE 500 ML IV STA (13:14)
[2024-04-24] MEDS: NITROFURANTOIN MACROCRYSTAL 50 MG CAPSULE (FP) GT SCH (17:15)
[2024-04-24 21:44] VITALS: RESP 18
[2024-04-25 09:51] LABS: BASO % 0.2 % (0-2.0); EOS % 6.5 % (0-4.5); HEMATOCRIT 40.6 % (32.4-45.2); HEMOGLOBIN 13.9 GM/dL (10.7-15.3); LYMPH % 33.1 % (8-40); MCH 32.3 pg (25.7-33.7); MCHC 34.3 g/dl (32.0-36.0); MEAN CELL VOLUME 94.3 fl (80-96); MEAN PLT VOLUME 8.7 fl (7.5-11.1); MONO % 10.6 % (3.8-10.2); NEUT % 49.6 % (42.8-82.8); PLATELET COUNT 312 10^3/uL (134-434); RDW 13.2 % (11.6-15.6); WHITE BLOOD COUNT 5.4 K/mm3 (4.0-10.0)
[2024-04-25 10:04] LABS: POTASSIUM 4.3 mmol/L (3.5-5.1)
[2024-04-25 10:31] LABS: CALCIUM 10.2 mg/dL (8.5-10.1)
[2024-04-25 10:32] LABS: ALBUMIN 3.6 g/dl (3.4-5.0); BLOOD UREA NITROGEN 17.5 mg/dL (7-18); MAGNESIUM 2.3 mg/dL (1.8-2.4)
[2024-04-25 10:34] LABS: CREATININE 0.6 mg/dL (0.55-1.3)
[2024-04-25 10:35] LABS: PHOSPHOROUS 3.7 mg/dL (2.5-4.9)
[2024-04-25 10:36] LABS: BILIRUBIN,TOTAL 0.3 mg/dL (0.2-1); TOT PROT 7.7 g/dl (6.4-8.2)
[2024-04-25 15:49] VITALS: BP 125/75; PULSE 91; TEMP 97.7
== END 2024-04-25 16:40 | DRG 189 ==
LOC: JER 12:24 → JERBED 16:11 → J6S 20:44
PROVIDERS: ADMIT Student in an Organized Health Care Education/Training Program; ATTEND Internal Medicine
DX: J96.01 Acute respiratory failure with hypoxia (principal); N39.0 Urinary tract infection, site not specified; F84.2 Rett's syndrome; Z15.1 Genetic susceptibility to epilepsy and neurodevelopmental disorders; G40.909 Epilepsy, unspecified, not intractable, without status epilepticus; B96.20 Unspecified Escherichia coli [E. coli] as the cause of diseases classified elsewhere
CPT/HCPCS: 0241U-QW; 36415; 71045-TC-FY; 80053; 81003; 82803; 83605; 83735; 84100; 84436; 84443; 84484; 85025; 85027; 85610; 85730; 86850; 86870; 86880; 86900; 86901; 86902; 87040; 87086; 87186; 87635; 93005; 93010; 99291

== ENCOUNTER 2024-06-21 04:55 | Inpatient (IN) | payer OTHER ==
[2024-06-21] MEDS: VANCOMYCIN 1,000 MG in DEXTROSE 5%-WATER - 250 ML IVPB ONE (05:45)
[2024-06-21] MEDS ORDERED: VANCOMYCIN 1 GM PREMIX (F) 1 GM/200 ML BAG ONE (05:48)
[2024-06-21] MEDS ORDERED: ACETAMINOPHEN INJECTION 100 ML ONE (05:48)
[2024-06-21] MEDS ORDERED: PIPERACILLIN/TAZOB 3.375 GM 3.375 GM/50 ML BAG IVPB ONE (05:48)
[2024-06-21 06:21] LABS: BASO % 0.2 % (0-2.0); EOS % 2.3 % (0-4.5); HEMOGLOBIN 14.2 GM/dL (10.7-15.3); LYMPH % 12.2 % (8-40); MCH 31.9 pg (25.7-33.7); MCHC 33.9 g/dl (32.0-36.0); MEAN CELL VOLUME 94.3 fl (80-96); MEAN PLT VOLUME 9.5 fl (7.5-11.1); MONO % 6.4 % (3.8-10.2); NEUT % 78.9 % (42.8-82.8); PLATELET COUNT 356 10^3/uL (134-434); RBC 4.45 M/mm3 (3.60-5.2); RDW 13.4 % (11.6-15.6); WHITE BLOOD COUNT 10.1 K/mm3 (4.0-10.0)
[2024-06-21 06:31] LABS: INR 1.04 (0.83-1.09); PROTHROMBIN TIME (PATIENT) 11.3 SEC (9.7-13.0)
[2024-06-21 06:42] LABS: POTASSIUM 4.5 mmol/L (3.5-5.1)
[2024-06-21 06:44] LABS: VENOUS BASE EXCESS 2.2 mmol/L (-2-2); VENOUS O2 SATURATION 75.7 % (70-80); VENOUS PCO2 51.8 mmHg (38-52); VENOUS PH 7.361 (7.310-7.410)
[2024-06-21 06:48] LABS: ALBUMIN 3.8 g/dl (3.4-5.0); BLOOD UREA NITROGEN 13.5 mg/dL (7-18); MAGNESIUM 2.2 mg/dL (1.8-2.4)
[2024-06-21 06:51] LABS: CREATININE 0.7 mg/dL (0.55-1.3)
[2024-06-21 06:52] LABS: BILIRUBIN,TOTAL 0.3 mg/dL (0.2-1)
[2024-06-21] MEDS: PIPERACILLIN/TAZOB 3.375 GM 3.375 GM in DEXTROSE 5%-WATER - 50 ML IVPB ONE (07:10)
[2024-06-21] MEDS: SODIUM CHLORIDE 1,000 ML IV STA (07:14)
[2024-06-21] MEDS: ACETAMINOPHEN 1000 MG/100 ML BAG IVPB ONE (07:19)
[2024-06-21] MEDS ORDERED: GlUCAGON HUMAN RECOMBINANT 1 MG/VIAL IM PRN (07:48)
[2024-06-21] MEDS ORDERED: BISACODYL 10 MG SUPP.RECT RC PRN (07:48)
[2024-06-21] MEDS ORDERED: SIMETHICONE 80 MG TAB.CHEW (FP) NR PRN (07:48)
[2024-06-21] MEDS ORDERED: ACETAMINOPHEN 325 MG TABLET (FP) PO PRN (07:48)
[2024-06-21 08:44] LABS: EPI CELLS >36 /uL (0-25.1); HYALINE CASTS 17 /uL (0-3.1); PH,URINE 8.5 (5.0-8.0); URINE APPEARANCE CLOUDY; URINE BACTERIA >9,000 /uL (0-1359); URINE BILIRUBIN NEGATIVE (NEGATIVE); URINE COLOR YELLOW; URINE GLUCOSE (UA) NEGATIVE (NEGATIVE); URINE KETONE NEGATIVE (NEGATIVE); URINE LEUK ESTERASE 2+ (NEGATIVE); URINE NITRITE POSITIVE (NEGATIVE); URINE PROTEIN TRACE (NEGATIVE); URINE UROBILINOGEN 0.2 mg/dL (0.2-1.0); URINE WBC 45 /uL (0-25.8)
[2024-06-21] MEDS: ALBUTEROL SO4 2.5/IPRATROPIUM 0.5 INH SOL 3 ML VIAL.NEB. NEB SCH (09:00)
[2024-06-21] MEDS ORDERED: ALBUTEROL SO4 2.5/IPRATROPIUM 0.5 INH SOL 3 ML VIAL.NEB. NEB ONE ×2 (09:53→12:26)
[2024-06-21] MEDS ORDERED: Lacosamide 200 MG/20 ML VIAL IVPB ONE (09:56)
[2024-06-21] MEDS ORDERED: ENOXAPARIN NA (PORCINE) 40 MG/0.4 ML DISP.SYRIN SQ ONE (09:57)
[2024-06-21] MEDS ORDERED: FAMOTIDINE 20 MG TABLET ONE (09:57)
[2024-06-21] MEDS ORDERED: lamoTRIgine 100 MG TABLET ONE (09:57)
[2024-06-21 10:00] LABS: URINE RBC 82 /uL (0-23.9)
[2024-06-21] MEDS ORDERED: NORETHINDRONE E ESTRADIOL IRON GT SCH (10:00)
[2024-06-21] MEDS ORDERED: LORazepam 2 MG/ML SDV VIAL IVPUSH PRN (10:00)
[2024-06-21] MEDS: lamoTRIgine 100 MG TABLET PO SCH (10:28)
[2024-06-21] MEDS: FAMOTIDINE 20 MG TABLET PO SCH (10:28)
[2024-06-21] MEDS: ENOXAPARIN NA (PORCINE) 40 MG/0.4 ML DISP.SYRIN SQ SCH (10:28)
[2024-06-21] MEDS: Lacosamide 50 MG/5 ML ORAL SOLUTION UNIT CUPS PO SCH (10:29)
[2024-06-21] MEDS ORDERED: Lacosamide 50 MG/5 ML ORAL SOLUTION UNIT CUPS ONE (10:47)
[2024-06-21] MEDS ORDERED: ACETAMINOPHEN 650 MG/20.3 ML ORAL SOLUTION (CUPS) PO PRN (11:15)
[2024-06-21] MEDS ORDERED: FAMOTIDINE 40 MG/5 ML ORAL SUSPENSION PO SCH (11:16)
[2024-06-21] MEDS: LACTOBACILLUS ACIDOPHILUS 1 TABLET GT SCH (11:50)
[2024-06-21] MEDS: FLUTICASONE PROP 0.05% 16 GM NASAL SPRAY NS SCH (11:55)
[2024-06-21] MEDS: MIDODRINE HCL 5 MG TABLET GT SCH ×2 (14:21→17:59)
[2024-06-21] MEDS: CEFTRIAXONE 1 G/50 ML PREMIX 50 ML IVPB SCH (17:51)
[2024-06-21] MEDS ORDERED: ACETAMINOPHEN 650 MG/20.3 ML ORAL SOLUTION (CUPS) GT PRN (18:38)
[2024-06-21] MEDS ORDERED: FAMOTIDINE 40 MG/5 ML ORAL SUSPENSION GT SCH (18:38)
[2024-06-21] MEDS: CLOBAZAM PO SCH (23:12)
[2024-06-21] MEDS: [UNRECOGNIZED DRUG - OTHER] PO SCH (23:12)
[2024-06-21] MEDS: BRIVARACETAM GT SCH ×2 (23:13)
[2024-06-21] MEDS: Lacosamide 50 MG/5 ML ORAL SOLUTION UNIT CUPS GT SCH (23:14)
[2024-06-21] MEDS: lamoTRIgine 100 MG TABLET GT SCH (23:15)
[2024-06-21] MEDS: WHEAT DEXTRIN GT SCH (23:55)
[2024-06-22 09:15] LABS: BASO % 0.1 % (0-2.0); EOS % 3.9 % (0-4.5); HEMATOCRIT 37.2 % (32.4-45.2); HEMOGLOBIN 12.7 GM/dL (10.7-15.3); LYMPH % 16.6 % (8-40); MCH 32.2 pg (25.7-33.7); MCHC 34.2 g/dl (32.0-36.0); MEAN CELL VOLUME 94.1 fl (80-96); MEAN PLT VOLUME 8.6 fl (7.5-11.1); MONO % 6.5 % (3.8-10.2); NEUT % 72.9 % (42.8-82.8); PLATELET COUNT 280 10^3/uL (134-434); RBC 3.95 M/mm3 (3.60-5.2); RDW 13.4 % (11.6-15.6); WHITE BLOOD COUNT 5.2 K/mm3 (4.0-10.0)
[2024-06-22 09:39] LABS: POTASSIUM 4.5 mmol/L (3.5-5.1)
[2024-06-22 09:44] LABS: ALBUMIN 3.2 g/dl (3.4-5.0)
[2024-06-22 09:45] LABS: CALCIUM 9.9 mg/dL (8.5-10.1)
[2024-06-22 09:46] LABS: BLOOD UREA NITROGEN 10.6 mg/dL (7-18); MAGNESIUM 2.3 mg/dL (1.8-2.4)
[2024-06-22 09:47] LABS: CREATININE 0.6 mg/dL (0.55-1.3); PHOSPHOROUS 3.6 mg/dL (2.5-4.9)
[2024-06-22 09:49] LABS: BILIRUBIN,TOTAL 0.3 mg/dL (0.2-1)
[2024-06-22] MEDS: FAMOTIDINE 20 MG/2.5 ML ORAL LIQUID GT SCH (10:49)
[2024-06-22 15:53] VITALS: BMI 26.3
[2024-06-23 09:12] LABS: BASO % 0.3 % (0-2.0); EOS % 5.3 % (0-4.5); HEMATOCRIT 37.2 % (32.4-45.2); HEMOGLOBIN 12.6 GM/dL (10.7-15.3); MCH 32.3 pg (25.7-33.7); MCHC 33.8 g/dl (32.0-36.0); MEAN CELL VOLUME 95.6 fl (80-96); MEAN PLT VOLUME 8.8 fl (7.5-11.1); MONO % 7.3 % (3.8-10.2); NEUT % 60.1 % (42.8-82.8); PLATELET COUNT 281 10^3/uL (134-434); RDW 13.6 % (11.6-15.6); WHITE BLOOD COUNT 4.9 K/mm3 (4.0-10.0)
[2024-06-23 09:41] LABS: POTASSIUM 4.5 mmol/L (3.5-5.1)
[2024-06-23 09:48] LABS: CALCIUM 9.6 mg/dL (8.5-10.1)
[2024-06-23 09:49] LABS: ALBUMIN 3.3 g/dl (3.4-5.0); MAGNESIUM 2.2 mg/dL (1.8-2.4)
[2024-06-23 09:52] LABS: BILIRUBIN,TOTAL 0.2 mg/dL (0.2-1); CREATININE 0.6 mg/dL (0.55-1.3)
[2024-06-23 09:53] LABS: TOT PROT 7.2 g/dl (6.4-8.2)
[2024-06-23] MEDS ORDERED: SIMETHICONE 40 MG/0.6 ML BOTTLE GT PRN (10:13)
[2024-06-23 14:44] VITALS: RESP 18
[2024-06-24 10:25] LABS: POTASSIUM 4.5 mmol/L (3.5-5.1)
[2024-06-24 10:29] LABS: ALBUMIN 3.6 g/dl (3.4-5.0)
[2024-06-24 10:32] LABS: BLOOD UREA NITROGEN 12.9 mg/dL (7-18); CALCIUM 10.3 mg/dL (8.5-10.1); MAGNESIUM 2.1 mg/dL (1.8-2.4)
[2024-06-24 10:33] LABS: CREATININE 0.6 mg/dL (0.55-1.3)
[2024-06-24 10:34] LABS: BILIRUBIN,TOTAL 0.4 mg/dL (0.2-1); TOT PROT 7.8 g/dl (6.4-8.2)
[2024-06-24 12:14] VITALS: BP 135/70; PULSE 85; TEMP 98
== END 2024-06-24 11:52 | disposition home or self-care (01) | DRG 177 ==
LOC: JER 04:55 → JERBED 07:09 → J8W 15:00
PROVIDERS: ADMIT Internal Medicine
DX: J69.0 Pneumonitis due to inhalation of food and vomit (principal); R53.2 Functional quadriplegia; F84.2 Rett's syndrome; N39.0 Urinary tract infection, site not specified; E46 Unspecified protein-calorie malnutrition; G40.909 Epilepsy, unspecified, not intractable, without status epilepticus; Z93.1 Gastrostomy status; I95.89 Other hypotension; Z68.26 Body mass index [BMI] 26.0-26.9, adult
CPT/HCPCS: 0241U-QW; 36415; 71045-TC-FY; 80053; 81003; 82803; 83605; 83735; 84100; 85025; 85610; 86850; 86870; 86880; 86900; 86901; 86902; 87040; 87086; 87186; 87481; 87635; 93005; 93010; 94640; 97161-GP; 99285-25; J0131